=== PATIENT | female | born 1965 | race Hispanic/Latino ===

== ENCOUNTER 2023-08-30 09:53 | Emergency (ER) | payer OTHER ==
[2023-08-30] MEDS ORDERED: ACETAMINOPHEN 500 MG TAB ONE (10:25)
[2023-08-30] MEDS ORDERED: methocarbamoL 750 MG TAB ONE (10:25)
--- NOTE | 2023-08-30 11:14 | RAD REPORT ---
EXAM DESCRIPTION: RAD - Shoulder Right 2 View - 08/30/2023 11:08 am CLINICAL HISTORY: PAIN COMPARISON: No comparisons FINDINGS/IMPRESSION: Possible nondisplaced fracture of the greater tuberosity. This is only seen on one view. CT could confirm. No other fractures identified. No dislocation. Right glenohumeral and AC joint degenerative changes that are probably mild.
--- NOTE | 2023-08-30 11:47 | EDPHYS ---
Physician Documentation [facility] Name: Cassy Garcia Age: 58 yrs Sex: Female : 1965 Arrival Date: 08/30/2023 Time: 09:53 Bed 20 Private MD: Sami Pritchard ED Physician Macario Rivera HPI: 08/30 10:06 This 58 yrs old Female presents to ER via Unassigned with complaints of Arm ec2 Injury. 10:06 Patient arrives today for evaluation of right shoulder pain. States that she was ec2 cleaning the house subsequently felt a sharp pain in her right upper extremity. States that she did not have any falls or injuries, states that the pain is worse with movement. States that she has a history of rotator cuff issues. Patient denies any falls or trauma.. Historical: - Allergies: 10:10 No Known Allergies; ap3 - PMHx: 10:10 Hypertensive disorder; Diabetes mellitus; ap3 - Immunization history:: Client reports receiving the 2nd dose of the Covid vaccine, Flu vaccine is up to date. - Social history:: Smoking status: Patient denies any tobacco usage or history of. ROS: 10:06 Constitutional: as per hpi ec2 Exam: 10:06 Constitutional: GEN: NAD Head: atraumatic Eyes: EOMI Ears: External ears are ec2 normal. CV: regular rate LUNGS: no respiratory distress ABD: non-distended SKIN: no evidence of rashes MSK: no evidence of trauma, TTP to the right deltoid region, pain with internal rotation however good range of motion, otherwise distal neurovascular status is intact. NEURO: moves all extremities equally Vital Signs: 10:07 BP 169 / 104; Pulse 85; Resp 17; Temp 98.7; Pulse Ox 99% ; Weight 84.37 kg; Pain 5/10; ap3 10:14 BP 161 / 90; Pulse 82; Resp 16 S; Pulse Ox 100% on R/A; kc6 11:24 BP 136 / 89; Pulse 75; Resp 16 S; Pulse Ox 100% on R/A; kc6 10:07 Pain Scale: Adult ap3 MDM: 10:00 Patient medically screened. ec2 10:06 ED course: Patient arrives today for evaluation of right shoulder pain. Examination ec2 remarkable for MSK findings as noted above. We will treat the patient's symptoms and reassess the patient. I suspect muscular strain or spasm causing the patient's pain. Have a low suspicion for bony fracture or dislocation given lack of injury or trauma and lack of deformity.. 10:47 Data reviewed: vital signs. ED course: Patient with improved range of motion however ec2 does report history of dislocations, will obtain a shoulder x-ray.. 11:42 ED course: X-ray with radiology read of possible nondisplaced fracture of the greater ec2 tuberosity. Patient does not have point tenderness to this location, will place patient in a sling for comfort and have her follow-up with orthopedic surgery for repeat imaging. Regardless end result will be placing in sling and have her follow-up with orthopedic surgery . 08/30 10:47 Order name: Shoulder Right (2 View) XRAY; Complete Time: 11:29 ec2 08/30 11:46 Order name: Sling; Complete Time: 11:56 ec2 Administered Medications: 10:20 Drug: Methocarbamol PO 750 mg PO once Route: PO; eh3 11:56 Follow up: Response: No adverse reaction; Pain is decreased; RASS: Alert and Calm (0) kc6 10:20 Drug: Ketorolac IM 30 mg IM once Route: IM; Site: left deltoid; eh3 11:56 Follow up: Response: No adverse reaction; Pain is decreased kc6 10:20 Drug: Acetaminophen PO 1000 mg PO once Route: PO; eh3 11:56 Follow up: Response: No adverse reaction; Pain is decreased kc6 10:20 Drug: Lidoderm Topical Patch 5 % (700 mg/patch) 1 patches Topical once; leave on for 12 eh3 hours; cover most painful area; may cut into smaller pieces Route: Topical; Site: right upper arm; 11:56 Follow up: Response: No adverse reaction; Pain is decreased kc6 Disposition Summary: 08/30/23 11:47 Discharge Ordered Notes: Location: Home ec2 Condition: Stable ec2 Diagnosis - Sprain of shoulder joint ec2 Followup: ec2 - With: Fei Shook MD - When: - Reason: Recheck today's complaints Discharge Instructions: - Discharge Summary Sheet ec2 - Shoulder Sprain ec2 Forms: - Medication Reconciliation Form ec2 - Thank You Letter ec2 - Antibiotic Education ec2 - Prescription Opioid Use ec2 - Patient Portal Instructions ec2 - Leadership Thank You Letter ec2 Prescriptions: - methocarbamol 500 mg Oral tablet - take 2 tablets ORAL route 4 times per day; 20 tablet; Refills: 0, Product ec2 Selection Permitted Signatures: Dispatcher [employer] May Bird RN RN ap3 Dagmar Brush RN RN eh3 Macario Rivera MD MD ec2 Chinyere Iqbal RN kc6 Corrections: (The following items were deleted from the chart) 11:46 11:42 ED course: X-ray with radiology read of possible nondisplaced fracture of the ec2 greater tuberosity. Patient does not have point tenderness to this location, will place patient in a sling for comfort and have her follow-up with orthopedic surgery for repeat imaging. Regardless end result will be placing in sling and have him follow-up with orthopedic surgery . ec2
--- NOTE | 2023-08-30 11:47 | ER ---
Nurse's Notes [facility] Name: Cassy Garcia Age: 58 yrs Sex: Female : 1965 Arrival Date: 08/30/2023 Time: 09:53 Bed 20 Private MD: Sami Pritchard Diagnosis: Sprain of shoulder joint Presentation: 08/30 10:07 Chief complaint: Patient states: she pushed up from a chair this morning, and had a ap3 brief pain in her right upper arm. patient then was able to swiffer mop her floors, but then reports pain after. patient currently rates her pain to be a 5/10 on the pain scale. Pain occurs more on movement than touch. patient denies any fall or trauma to the arm. Coronavirus screen: At this time, the client does not indicate any symptoms associated with coronavirus-19. Ebola Screen: No symptoms or risks identified at this time. Initial Sepsis Screen: Does the patient meet any 2 criteria? No. Patient's initial sepsis screen is negative. Does the patient have a suspected source of infection? No. Patient's initial sepsis screen is negative. Risk Assessment: Do you want to hurt yourself or someone else? Patient reports no desire to harm self or others. Onset of symptoms was August 30, 2023. 10:07 Method Of Arrival: Ambulatory ap3 10:07 Acuity: MICAHEL 4 ap3 Triage Assessment: 10:10 General: Appears uncomfortable, Behavior is calm, cooperative, appropriate for age. ap3 Pain: Complains of pain in right bicep Pain currently is 5 out of 10 on a pain scale. Neuro: Level of Consciousness is awake, alert, obeys commands, Oriented to person, place, time, situation, Appropriate for age. Cardiovascular: Patient's skin is warm and dry. Respiratory: Airway is patent Respiratory effort is even, unlabored, Respiratory pattern is regular, symmetrical. Musculoskeletal: Reports pain in right bicep. Injury Description: none reported. Historical: - Allergies: 10:10 No Known Allergies; ap3 - PMHx: 10:10 Hypertensive disorder; Diabetes mellitus; ap3 - Immunization history:: Client reports receiving the 2nd dose of the Covid vaccine, Flu vaccine is up to date. - Social history:: Smoking status: Patient denies any tobacco usage or history of. Screenin:[facility] Fall Risk Assessment (Adult) History of falling in the last 3 months, ap3 including since admission No falls in past 3 months (0 pts). Abuse screen: Denies threats or abuse. Nutritional screening: No deficits noted. Tuberculosis screening: No symptoms or risk factors identified. Assessment: 10:14 Reassessment: please see triage assessment. kc6 11:14 Reassessment: Patient appears in no apparent distress at this time. No changes from kc6 previously documented assessment. Patient and/or family updated on plan of care and expected duration. Pain level reassessed. Patient is alert, oriented x 3, equal unlabored respirations, skin warm/dry/pink. Vital Signs: 10:07 BP 169 / 104; Pulse 85; Resp 17; Temp 98.7; Pulse Ox 99% ; Weight 84.37 kg; Pain 5/10; ap3 10:14 BP 161 / 90; Pulse 82; Resp 16 S; Pulse Ox 100% on R/A; kc6 11:24 BP 136 / 89; Pulse 75; Resp 16 S; Pulse Ox 100% on R/A; kc6 10:07 Pain Scale: Adult ap3 ED Course: 09:57 Patient arrived in ED. mr 09:57 Sami Pritchard MD is Private Physician. mr 09:58 Macario Rivera MD is Attending Physician. ec2 10:06 Chinyere Iqbal, RONIT is Primary Nurse. kc6 10:10 Triage completed. ap3 10:11 Arm band placed on left wrist. ap3 10:11 Patient has correct armband on for positive identification. Bed in low position. Call ap3 light in reach. Side rails up X 1. Pulse ox on. NIBP on. 10:14 Patient maintains SpO2 saturation greater than 95% on room air. kc6 10:15 Primary Nurse role handed off by Chinyere Iqbal, RN kc6 10:16 Chinyere Iqbal RN is Primary Nurse. kc6 11:09 Shoulder Right (2 View) XRAY In Process Unspecified. EDMS 11:46 Fei Shook MD is Referral Physician. ec2 11:56 No provider procedures requiring assistance completed. Patient did not have IV access kc6 during this emergency room visit. Administered Medications: 10:20 Drug: Methocarbamol PO 750 mg PO once Route: PO; eh3 11:56 Follow up: Response: No adverse reaction; Pain is decreased; RASS: Alert and Calm (0) kc6 10:20 Drug: Ketorolac IM 30 mg IM once Route: IM; Site: left deltoid; eh3 11:56 Follow up: Response: No adverse reaction; Pain is decreased kc6 10:20 Drug: Acetaminophen PO 1000 mg PO once Route: PO; eh3 11:56 Follow up: Response: No adverse reaction; Pain is decreased kc6 10:20 Drug: Lidoderm Topical Patch 5 % (700 mg/patch) 1 patches Topical once; leave on for 12 eh3 hours; cover most painful area; may cut into smaller pieces Route: Topical; Site: right upper arm; 11:56 Follow up: Response: No adverse reaction; Pain is decreased kc6 Medication: 11:57 VIS not applicable for this client. kc6 Outcome: 11:47 Discharge ordered by . ec2 11:56 Discharged to home ambulatory, with friend, kc6 11:56 Condition: improved 11:56 Discharge instructions given to patient, Instructed on discharge instructions, follow up and referral plans. medication usage, Demonstrated understanding of instructions, follow-up care, medications, Prescriptions given X 1, 11:57 Patient left the ED. kc6 Signatures: Dispatcher [employer] EDCorazon Burgess, Reg Reg mr May Horne RN RN ap3 Dagmar Brush RN RN eh3 Chinyere Iqbal RN RN kc6 Macario Rivera MD MD ec2
[2023-08-30 12:06] VITALS: TEMP 98.7
[2023-08-30 12:09] VITALS: O2SAT 100
[2023-08-30 12:10] VITALS: BP 136/89
== END 2023-08-30 11:57 | disposition home or self-care (01) ==
LOC: ER 09:53
DX: S43.401A Unspecified sprain of right shoulder joint, initial encounter (principal)
CPT/HCPCS: 96372; 99285

== ENCOUNTER → 2023-11-04 | Day surgery (SDC) | payer OTHER ==
[2023-10-31 10:45] LABS: Absolute Lymphocytes (CBC) 2.2 K/uL (0.7-4.9); Hematocrit 43.3 % (36.0-45.0); Lymphocytes % 40.5 % (15.3-44.8); MCV 90.5 fL (80-100); MPV 8.5 fL (7.6-11.3); Platelets 199 thou/uL (152-406); RBC Red Blood Cell Count 4.79 M/uL (3.86-4.86)
[2023-10-31 10:56] LABS: Protime INR 1.01
[2023-10-31 11:00] LABS: Potassium 3.6 mEq/L (3.5-5.1)
--- NOTE | 2023-10-31 11:35 | RAD REPORT ---
EXAM DESCRIPTION: RAD - Chest Pa And Lat (2 Views) - 10/31/2023 10:45 am CLINICAL HISTORY: PRE OP RIGHT ROTATOR CUFF REPAIR hypertension COMPARISON: No comparisons TECHNIQUE: PA and lateral views of the chest were obtained. FINDINGS: The lungs are clear. Heart size is normal and central vasculature is within normal limits. No pleural effusion or pneumothorax seen. No acute bony finding noted. IMPRESSION: No acute cardiopulmonary process.
[~2023-11-04] MED LIST: CEFAZOLIN SODIUM 2 GM/VIAL ONE; EPHEDRINE SULF 50 MG/ML VIAL ONE; EPINEPHRINE 1 MG/ML VIAL ONE; FENTANYL CITR 100 MCG/2 ML ONE; HYDROCODONE/APAP 7.5/325 MG TAB ONE; HYDROCODONE/APAP 7.5/325 MG TAB PO ONE; KETOROLAC 30 MG/ML INJ ONE; LIDOCAINE 1% MPF 5 ML VIAL ONE; MIDAZOLAM HCL 2 MG/2 ML INJ ONE; NA CHLORIDE 0.9% 1,000 ML ONE; ONDANSETRON 4 MG/2 ML VIAL ONE; ROCURONIUM 50 MG/5 ML VIAL IV ONE; dexAMETHasone 10 MG/ML VIAL ONE; dexAMETHasone 4 MG/ML VIAL ONE; propofoL 200 MG/20 ML VIAL IV ONE
--- NOTE | 2023-11-04 13:12 | P.BOP ---
Preoperative diagnosis: right shoulder rotator cuff tear, biceps tendinitis, impingement syndrome Postoperative diagnosis: right shoulder arthroscopic rotator cuff repair Primary procedure: right shoulder arthroscopic subacromial decompression Secondary procedure: right shoulder open subpectoral biceps tenodesis [employer]: NONE,NONE Estimated blood loss: 10 cc Specimen: none Findings: see dictation Anesthesia: General Complications: None Implants: Arthrex 5.5 mm corkcrew, 2- 4.75 mm swivelock, 7 x 19 mm biotenodesis screw Fluids & blood products: per anesthesia record Transferred to: Recovery Room Condition: Good
--- NOTE | 2023-11-04 14:14 | RAD REPORT ---
EXAM DESCRIPTION: Shoulder 1 View - 11/04/2023 1:52 pm CLINICAL HISTORY: S/P RCR SAD COMPARISON: No comparisons TECHNIQUE: Single view of the right shoulder. FINDINGS: There is no fracture or dislocation. AC joint [id number] degenerative changes. Corti zainab irregularity along the greater tuberosity, may relate to longstanding sequelae of rotator cuff ch anges. No acute or suspicious findings. Some soft tissue gas likely relates to recent operative inter vention. IMPRESSION: No acute findings. Postoperative and chronic changes as above.
[2023-11-04 14:39] VITALS: BP 117/56; O2SAT 96
[2023-11-04 14:40] VITALS: TEMP 97
--- NOTE | 2023-11-07 08:01 | P.OP ---
Preoperative diagnosis: Right shoulder rotator cuff tear, biceps tendinitis, impingement syndrome Postoperative diagnosis: Same Primary procedure: Right shoulder arthroscopic rotator cuff repair Secondary procedure: right shoulder open subpectoral biceps tenodesis Other procedure(s): right shoulder arthroscopic subacromial decompression Anesthesia: General Estimated blood loss: 10 cc Specimen: None Findings: see dictation Operative Technique: Indication For Procedure: The patient is a 58-year-old female who presented to my clinic with signs, symptoms, and MRI findings consistent with a right shoulder full-thickness rotator cuff tear. I discussed with the patient risks and benefits associated with operative and nonoperative treatment. She expressed understanding and elected to proceed with operative treatment. Description Of Procedure: After informed consent was obtained, the patient was identified in the preoperative holding area. The right upper extremity was marked. The patient then was brought to the PACU where she underwent a right- sided interscalene block performed by Anesthesia. The patient was brought back to the operating room, transferred to the operative table in supine fashion, placed under general endotracheal anesthesia. She was then placed in a beach chair position with his extremities well padded. The right upper extremity was then prepped and draped in usual sterile fashion. A time-out was initiated. The correct patient and procedure were performed and identified. The patient did receive preoperative prophylactic antibiotics. Via the posterior portal position, a spinal needle was introduced in the glenohumeral joint and the shoulder was injected with 30 cc of normal saline to distend the capsule. A stab incision was made posteriorly and a posterior portal was created. Arthroscope was brought in via the posterior portal position and diagnostic arthroscopy was performed. Under direct visualization, an anterior portal and cannula were created. There were no significant instability of the superior labrum or anterior posterior labrum, which were stable to probe. There was fraying and tenosynovitis of the bicipital tendon both intra-articular and extra-articular. A biceps tenotomy was performed using a meniscal biter. The anchor was then debrided using the arthroscopic shaver. Subscapularis was found to be stable and intact to probe. There were no loose bodies within the axillary pouch. The patient was noted to have a full-thickness tear of the supraspinatus. A lateral portal was created and an arthroscopic shaver was then used to debride the greater tuberosity. The rotator cuff tear was noted to reduce to the greater tuberosity. Greater tuberosity was debrided using the arthroscopic shaver to create a bleeding bony bed. The undersurface of the rotator cuff tear was also debrided using the arthroscopic shaver to remove any unhealthy tissue. The arthroscope was then brought in the subacromial space. A subacromial bursectomy was performed using arthroscopic shaver. The patient was noted to have a full-thickness tear of the supraspinatus, which was mildly retracted. The humeral head was reducible to the greater tuberosity. A lateral stab incision was made just lateral to the acromion. A punch was then placed, was then used to place a 5.5 mm double loaded Arthrex corkscrew. Sutures were then passed through the rotator cuff tear in anterior-posterior fashion, tied in a horizontal mattress fashion. The suture lines were then crisscrossed and 2 lateral Arthrex SwiveLock anchors were placed to increase surface area of the reduction onto the greater tuberosity of the rotator cuff tendon. The remaining suture limbs were then cut. There was some significant fraying of a coracoacromial ligament as well as some undersurface spurring of the acromion and acromioplasty was performed using a radiofrequency ablator and an arthroscop ic bur. Arthroscopic instruments were then removed without complication. Next attention was taken to performing the open subpectoral biceps tenodesis. Approximately a 3 cm incision was made just medial to the pec insertion. Dissection was then taken out of the fascia which was split and divided in line with the incision. The long head of the biceps tendon was then found and brought out the incision. It was whipstitched for over 2 and half centimeters. It was measured 3 centimeters from the musculoskeletal junction and cut distal to that. A guidepin and an 8 mm reamer were then placed over create a tunnel within the bicipital groove for placement of the tendon. A 7 x 19 mm Arthrex Bio-Tenodesis screw was then placed with the tendon inside the tunnel with good fixation. The sutures were then tied over the screw and cut. The wound was then irrigated thoroughly with normal saline. Subcutaneous tissue was approximated using a 2-0 Vicryl. Portals were approximated using a 3-0 Monocryl. Sterile dressings were applied. Shoulder immobilizer was placed. The patient was awakened and transferred to PACU in stable condition. Postoperative Plan: The patient will be nonweightbearing in a shoulder immobilizer for 6 weeks. We will follow the medium rotator cuff repair protocol 4 weeks postoperatively. Complications: None Implants: 1- 5.5 mm arthrex corkscrew, 2-4.75 mm swivelock, 7x19 tenodesis screw Fluids & blood products: per anesthesia record Transferred to: Recovery Room Condition: Good
== END ==
LOC: OR 10-31 09:30
PROVIDERS: ATTEND Orthopaedic Surgery Sports Medicine
PROC: 0LS30ZZ Reposition Right Upper Arm Tendon, Open Approach (ICD-10-PCS; 2023-11-04)
PROC: 0RHJ04Z Insertion of Internal Fixation Device into Right Shoulder Joint, Open Approach (ICD-10-PCS; 2023-11-04)
PROC: 0RNJ4ZZ Release Right Shoulder Joint, Percutaneous Endoscopic Approach (ICD-10-PCS; principal; 2023-11-04 10:15)
DX: M75.101 Unspecified rotator cuff tear or rupture of right shoulder, not specified as traumatic (principal); M75.21 Bicipital tendinitis, right shoulder; M75.41 Impingement syndrome of right shoulder
CPT/HCPCS: 85025; 80048; 36415; 85610; 82947 ×2; 85730; 71046; 73020; 29827; 29826; 23430; J2704; J1100 ×2; J2001 ×2; J2250; J3010 ×2; J0171 ×4; J2405; J7030